=== PATIENT | male | born 1965 | race Caucasian/White ===

== ENCOUNTER 2018-09-06 00:42 | Emergency (ER) | payer OTHER ==
[~2018-09-06] VITALS: Ht 177.8 cm; Wt 99.8 kg
[2018-09-06] MEDS ORDERED: OMEPRAZOLE40 MG PO (01:52)
[2018-09-06] MEDS ORDERED: NORTRIPTYLINE H25 M3 (01:53)
[2018-09-06] MEDS ORDERED: AMLODIPINE BESY10 MG PO (01:53)
[2018-09-06] MEDS ORDERED: LOVASTATIN 20 M20 MG PO (01:53)
[2018-09-06] MEDS ORDERED: METFORMIN HCL500 MG PO (01:54)
[2018-09-06] MEDS ORDERED: LOPRESSOR50 PO (01:54)
[2018-09-06] MEDS ORDERED: LISINOPRIL20 MG PO (01:54)
[2018-09-06] MEDS ORDERED: TYLENOL325 MG PO (01:55)
[2018-09-06] MEDS ORDERED: FLEXERIL PO (01:55)
[2018-09-06] MEDS ORDERED: MEDROLDOSEPACK PO (02:14)
[2018-09-06] MEDS ORDERED: NORCO 5-325 TA1 EACH PO (02:14)
[2018-09-06 04:04] VITALS: BP 132/95
== END 2018-09-06 04:09 | disposition home or self-care (01) ==
LOC: ER 00:42
DX: M54.42 Lumbago with sciatica, left side (principal); F17.210 Nicotine dependence, cigarettes, uncomplicated